=== PATIENT | male | born 1950 | race Caucasian/White ===

== ENCOUNTER 2019-11-13 09:17 | Day surgery (SDC) | payer MEDICARE ==
[~2019-11-13] VITALS: Ht 175.3 cm; Wt 88.0 kg
[~2019-11-13 09:17] MED LIST: AMLO10TA8 PO; APIX5TAB PO; ATEN100T PO; ATOR-2 PO; HYDR-3240 PO; IRBE150T9 PO; POLY17PO5 PO; TRAM-47 PO
[2019-11-13] MEDS ORDERED: SODIUM CHLORIDE 0.9% 500 ML IV PRN (09:45)
[2019-11-13 10:10] VITALS: BP 149/85
[2019-11-13] MEDS ORDERED: ATOR40TA78 PO (10:25)
[2019-11-13 10:32] LABS: BASOPHILS # (AUTO) 0.04 x10^3/uL (0-0.1); BASOPHILS % (AUTO) 1 % (0-1); EOSINOPHILS # (AUTO) 0.21 x10^3/uL (0-0.4); EOSINOPHILS % (AUTO) 4 % (1-7); LYMPHOCYTES # (AUTO) 1.08 x10^3/uL (1-3.4); LYMPHOCYTES % (AUTO) 19 % (22-44); MD NO; MEAN CORPUSCULAR HEMOGLOBIN 30.9 pg (27.5-34.5); MEAN CORPUSCULAR HGB CONC 33.5 g/dL (33.2-36.2); MEAN CORPUSCULAR VOLUME 92.2 fL (81-97); MEAN PLATELET VOLUME 8.1 fL (7.4-10.4); MONOCYTES # (AUTO) 0.62 x10^3/uL (0.2-0.8); MONOCYTES % (AUTO) 11 % (2-9); NEUTROPHILS # (AUTO) 3.76 x10^3/uL (1.8-6.8); NEUTROPHILS % (AUTO) 66 % (42-75); PLATELET COUNT 158 x10^3/uL (130-400); RED CELL DISTRIBUTION WIDTH 16.5 % (9.4-14.8)
[2019-11-13 10:39] LABS: ANION GAP 4 mmol/L (5-15); CALCIUM 8.2 mg/dL (8.5-10.1); CHLORIDE 110 mmol/L (98-107); CREATININE 1.52 mg/dL (0.7-1.3)
[2019-11-13] MEDS ORDERED: PROPOFOL 10 MG/ML, 20ML ONE (10:42)
== END 2019-11-13 12:20 | disposition home or self-care (01) ==
LOC: CACL 09:17
PROVIDERS: ATTEND Internal Medicine Cardiovascular Disease
DX: I48.91 Unspecified atrial fibrillation (principal); I48.92 Unspecified atrial flutter; I74.4 Embolism and thrombosis of arteries of extremities, unspecified; I10 Essential (primary) hypertension; Z86.718 Personal history of other venous thrombosis and embolism
CPT/HCPCS: 36415; 80048; 85025; 92960; 93005; J2704